=== PATIENT | female | born 1985 | race Two or more races ===

== ENCOUNTER 2024-02-04 13:12 | Outpatient (AMB) | payer MEDICAID, SELFPAY ==
--- NOTE | 2024-02-04 13:27 | PD.GSCLVISIT ---
[facility] - [facility] 02/04/24 13:28 Height 1.37 m Height Method Stated Weight 62.142 kg Weight Measurement Method Standing Scale BMI 33.0 BP 117/71 Blood Pressure Source Automatic Cuff Blood Pressure Location Right Upper Arm Position Sitting Respiration 18 Pulse 74 Pulse Source Monitor Temp 97.8 F Temp Source Temporal Artery Scan Pulse Oximetry (%) 98 Oxygen Delivery Method Room Air Med/Allergies Allergies & Medications Allergies No Known Allergies Allergy (Verified 02/04/24 13:29) Medication Reconciliation No Known Home Medications 02/04/24 [History Confirmed 02/04/24] MA Intake Visit Data Collection New Patient or Established: Established Patient (seen at [facility] within 3 years) Seen by Clinical Staff ONLY (RN/MA): No Reason for Visit:: COLONOSCOPY FOLLOW UP Pain Present Currently: No Utilization Review Coordinator Required: Yes PCP or OBGYN visit in last 3 months: Yes Hx Now: No Do You Feel Safe at Home: Yes Authorities Contacted: N/A Smoking Status Smoking Status: Never smoker Immunization / Flu Flu Vaccine in the Last 12 Months: No Flu Vaccine Exclusion Criteria: No Exclusion Criteria Past Medical History Past Medical History NEUROLOGIC: Positive Neurological Disorders (NUMBNESS TO LEFT LOWER ARM AT NIGHT); Negative Seizures CARDIAC: Positive Cardiac Disorders and Hypercholesterolemia (NO MEDS); Negative Congestive Heart Failure RESPIRATORY: Positive Asthma; Negative Chronic Obstructive Pulmonary Disease (COPD) GASTROINTESTINAL: Positive Gastrointestinal Disorders (FATTY LIVER) GENITOURINARY: Negative Genitourinary Disorders or Renal Disease REPRODUCTIVE: Positive Previous Pregnancies; Negative Breast Cancer, Endometriosis, Genital Herpes, Gonorrhea, Pelvic Inflammatory Disease, Syphilis or Uterine Prolapse ENDOCRINE: Positive Endocrine Disorders; Negative Diabetes Mellitus Type 1 or Diabetes Mellitus Type 2 (PRE - NO MEDS) HEMATOLOGIC: Negative Blood Disorders PSYCHO/SOCIAL: Positive Anxiety OTHER HISTORY: Positive Chicken Pox and Measles; Negative Blood Transfusions, Anesthesia Reactions, Organ Transplant, Chemotherapy, Radiation Therapy, Hyperbaric Therapy, Clostridium Difficile, Cancer or Breast Cancer Family History FAMILY HISTORY: Positive Family Cardiac Disorders; Negative Family Psychiatric Problems, Family Respiratory Disorders, Family Gastrointestinal Problems, Family Cancer, Family Surgery or Family Anesthesia Reaction Surgical History SURGICAL: Positive Abdominal Surgery and Section (X1); Negative Cardiac Surgery, Endocrine Surgery, Ear Surgery, Nephrectomy, Joint Replacement, Neurologic Surgery, Mastectomy or Organ Transplant Social History SMOKING STATUS: Smoking status: Never smoker ALCOHOL: Alcohol Intake: Never HOUSING: Housing: House LIVES WITH: Lives With: Family HPI HPI Narrative Spoke to pt with in-person educational interpreter 38F referred for hemorrhoids s/p colonoscopy 01/23 here to discuss results. Pt reports her hemorrhoids are still bothersome, mostly causing discomfort, even though her BMs are mostly soft without any straining or diarrhea ROS Review of Systems Systems Reviewed: All systems reviewed, normal except as documented Objective/Exam General General Appearance: alert, cooperative and well groomed Resp Respiratory exam: Absent respiratory distress Results Colonoscopy report reviewed Assessment & Plan Diagnosis / Problem List (1) Hemorrhoids with complication: Status: Acute Plan 39F with symptomatic hemorrhoids refractory to conservative management. Since she has healthy bowel habits I explained it is reasonable to proceed with THD; I explained benefits/risks including pain, bleeding and recurrence. Pt expressed understanding and agrees to proceed Office Procedures GNS Level of Care Nursing/Assessment Patient Status: Established Patient Nursing Assessment/Reassesment: Medication Reconciliation, Update PMH in EMR and Vital Signs Coordination of Care: Complex Care and Chronic Disease 1-5, Education Complex Pt/Fam, Consent,records obtained, informed consent, Results/Orders obtained and Staff clarify orders Special Needs: Language special needs Established Patient Charge Established Patient Point Assignment: 95 Established Patient Point Charge: EP Level 3 (80-115) Patient Portal Questionaires Social History Living Situation History Housing: House Tobacco History Smoking Status: Never smoker Alcohol History Alcohol Intake: Never Domestic Abuse History Do You Feel Safe at Home: Yes Review of Systems Report any current symptoms Only answer those that you have currently: Past Medical History Past Medical History Have you ever been diagnosed with any of the following: Neurological Problems Seizures: No Cardiology Problems Hypercholesterolemia: Yes (NO MEDS) Congestive Heart Failure: No Respiratory Problems Chronic Obstructive Pulmonary Disease (COPD): No Asthma: Yes Genital/Urinary Problems Renal Disease: No Reproductive Problems Breast Cancer: No Endometriosis: No Genital Herpes: No Gonorrhea: No Pelvic Inflammatory Disease: No Previous Pregnancies: Yes Syphilis: No Uterine Prolapse: No Endocrine Problems Diabetes Mellitus Type 1: No Diabetes Mellitus Type 2: No (PRE - NO MEDS) Psychologic Problems Anxiety: Yes Other Problems Blood Transfusions: No Anesthesia Reactions: No Organ Transplant: No Chemotherapy: No Radiation Therapy: No Hyperbaric Therapy: No Chicken Pox: Yes Measles: Yes Clostridium Difficile: No Cancer: No
[2024-02-04 13:28] VITALS: BP 117/71; PULSE 74; RESP 18; TEMP 36.6; O2SAT 98; BMI 33.0
== END 2024-02-04 13:51 | disposition home or self-care (01) ==
LOC: HODSRG 13:12
PROVIDERS: PCP Family Medicine; Referring Provider Family Medicine; Supervising Provider Surgery; Visit Provider Surgery
DX: K64.8 Other hemorrhoids (principal)
CPT/HCPCS: 99213; G0463

== ENCOUNTER 2024-03-19 05:55 | Day surgery (SDC) | payer MEDICAID, SELFPAY ==
[2024-03-14 07:14] VITALS: BMI 35.0
[2024-03-14 08:44] LABS: Basophils # (Auto) 0.1 Thou/mm3 (0.0-0.2); Basophils % (Auto) 1 % (0-2.5); Eosinophils # (Auto) 0.3 Thou/mm3 (0.0-0.5); Eosinophils % (Auto) 4 % (0-10); Hematocrit 34.5 % (36.0-46.0); Hemoglobin 11.7 g/dL (12.0-16.0); Immature Granulocytes % (Auto) 0 % (0-0); Immature Granulocytes Auto 0.02 Thou/mm3 (0.00-0.00); Lymphocytes % (Auto) 29 % (10-50); Mean Corpuscular HGB Conc 33.9 g/dl (31.0-37.0); Mean Corpuscular Hemoglobin 28.2 pg (25.0-35.0); Mean Corpuscular Volume 83 fL (80-100); Monocytes # (Auto) 0.3 Thou/mm3 (0.0-0.8); Monocytes % (Auto) 4 % (0-12); Neutrophils # (Auto) 4.3 Thou/mm3 (1.8-7.7); Neutrophils % (Auto) 61 % (37-80); Nucleated Red Blood Cell % 0 /100 WBC (0); Platelet Count 218 Thou/mm3 (140-440); RDW Standard Deviation 44.9 fL (36.4-46.3); Red Blood Count 4.15 Miln/mm3 (4.00-5.20)
[2024-03-14 08:55] LABS: HCG Qualitative,Urine Negative
[2024-03-14 09:08] LABS: Anion Gap 8 (7-16); BUN/Creatinine Ratio 23 Ratio (12-20); Blood Urea Nitrogen 14 mg/dL (9-23); Calcium 9.6 mg/dL (8.3-10.6); Carbon Dioxide 22.9 mMol/L (20.0-31.0); Chloride 106 mMol/L (98-107); Creatinine (Component) 0.6 mg/dL (0.6-1.3); Estimated Creatinine Clearance 96.5 mL/min (>60); Glucose 151 mg/dL (74-106); Osmolality,Calculated 277 (275-295); Potassium 3.5 mMol/L (3.4-5.1); Sodium 137 mMol/L (136-145); eGFR > 60 See Note
[2024-03-14 09:10] LABS: Partial Thromboplastin Time 28.4 Seconds (22.0-36.0); Prothrombin Time 10.7 Seconds (9.0-12.2)
[2024-03-19] VITALS (10 sets, daily range): BP systolic 112–148; BP diastolic 64–93; PULSE 68–85; RESP 13–19; TEMP 36.1–36.6; O2SAT 96–98; BMI 34.4
[2024-03-19] MEDS: RINGERS LACTATED 1000 ML 1,000 ML 20 ML IV (06:45)
--- NOTE | 2024-03-19 08:25 | SUR.PHASEI ---
0882 Patient arrived to recovery resting comfortably in [facility], drowsy and able to arouse with verbal prompting, breathing unlabored, vital signs stable, denies pain, dressing intact to buttock; fluffs, abd, medipore tape, mesh underwear, no bleeding noted, lung sounds clear upon auscultation, bilateral radial pulses present when palpated, report received from Dr. Gagnon and Rizwan SOSA
--- NOTE | 2024-03-19 08:26 | PD.SUROPNT ---
Date of Procedure 03/19/24 Pre Op Diagnosis Symptomatic hemorrhoids Post Op Diagnosis Same Procedure Transanal hemorrhoidal dearterialization Findings Internal hemorrhoids Procedure Description After discussion of risk and benefits, patient was brought to the operating room, SCDs were placed and general anesthesia was induced. She was placed in lithotomy position with proper padding and was prepped and draped in the usual sterile fashion. After timeout a ESTRELLA was performed which was normal. The anal canal was inspected with a lubricated King retractor and anterior normal hemorrhoids were noted. Transanal hemorrhoidal dearterialization was undertaken at the 1, 3, 5, 7, 9, and 11:00 positions. As there was no prolapsing tissue no mucopexy was required. Left and right pudendal nerve blocks were performed as well as a local block for total of 30 cc of half percent Marcaine. Patient was returned to supine position and extubated without complication. She was brought to PACU in stable condition Pathology / specimen None Estimated Blood Loss 20 Surgeon Anna Ocampo MD Surgical Staff Operation Date: 03/19/24 07:30 Case Staff Anesthesiologist: Jaquan Gagnon
--- NOTE | 2024-03-19 08:28 | PD.SURDS ---
Planned Discharge Date 03/19/24 DS: Providers Provider Primary care physician: Jesus Mazariegos MD Attending Provider on Admission: Anna Ocampo MD Attending Provider on DC: Anna Ocampo MD Discharging Provider: Anna Ocampo MD Diagnosis Discharge Diagnosis (1) Hemorrhoids with complication: Status: Acute Problem List Completed Was Problem List Reviewed/Reconciled?: Yes Exam Vital Signs Temp Pulse Resp BP Pulse Ox 97 F 72 14 128/64 98 03/19/24 06:35 03/19/24 06:35 03/19/24 06:35 03/19/24 06:35 03/19/24 06:35 Discharge Plan Plan Patient Disposition: HOME (Self Care) Prescriptions/Referrals Prescriptions/Med Rec: New docusate sodium [Colace] 100 mg capsule 100 mg PO QDAY PRN (Reason: constipation) Qty: 30 0RF ibuprofen 800 mg tablet 800 mg PO Q8H PRN (Reason: pain) Qty: 30 0RF oxycodone-acetaminophen [Percocet] 5-325 mg tablet 1 tab PO Q6H MDD 6 tabs PRN (Reason: pain) Qty: 30 0RF No Action albuterol sulfate 90 mcg/actuation HFA aerosol inhaler 1 puff INHALATION Q4HR PRN (Reason: Shortness Of Breath Or Wheezing) norethindrone (contraceptive) 0.35 mg Tablet 0.35 mg PO QDAY amoxicillin 500 mg Capsule 500 mg PO Q8H Referrals: Jesus Mazariegos MD [Primary Care Provider] - Anna Ocampo MD [Physician] - (You will receive a phone call to confirm a follow-up appointment with me in 6 weeks) Patient/Caregiver Discharge Instructions Other Discharge Activity Instructions:: Avoid constipation and diarrhea You may take Percocet and ibuprofen each as needed for pain, would stagger the doses so that you can take 1 or the other every 3-4 hours You may take sitz baths for pain, swelling and bleeding as needed starting tomorrow 03/20 If you develop worsening pain, fever, difficulty urinating please seek care in ER Education Materials: Treating Hemorrhoids: Surgery, Taking a Sitz Bath Print Language: Austrian Stand Alone Forms: Jeane Award Info., Patient Portal Info Letter Discharge Order Discharge Orders: Discharge (Routine); Ordered 03/19/24 Ordered By: Anna Ocampo Results Results: Laboratory Laboratory results: results reviewed Procedures Procedure Date 03/19/24 Procedures Transanal hemorrhoidal dearterialization
[2024-03-19] MEDS: fentaNYL CIT INJ 50 mCg/ML AMP 2ML 25 MCG IV ×2 (08:55→09:12)
[2024-03-19] MEDS: ONDANSETRON INJ 2 MG/ML INJ 2 ML 4 MG IV (09:06)
--- NOTE | 2024-03-19 10:04 | SUR.PHASEII ---
1004 Patient meets discharge criteria from recovery, awake and alert, breathing unlabored, vital signs stable, denies pain, dressing intact; no bleeding noted, patient eating ice chips tolerating well, patient assisted with dressing into her clothing by this principal technical writer, discharge instructions given with the assistance of the telephone telecommunications officer Kevyn ID#[id number] to patient and patients , signed discharge instructions. Patient given all her belongings prior to discharge, transported via wheelchair and left in a private vehicle.
== END 2024-03-19 10:04 | disposition home or self-care (01) ==
PROVIDERS: Anesthesiology; PCP Family Medicine; Referring Provider Surgery; Visit Provider Surgery
PROC: (CPT 46948; principal; 2024-03-19 07:30)
DX: K64.8 Other hemorrhoids (principal)
CPT/HCPCS: 46948; 36415; 80048; 81025; 85025; 85610; 85730; A4217; A4649; J1100; J2250; J2371; J2405; J2704; J3010; J3490; J7120

== ENCOUNTER 2024-05-05 08:48 | Outpatient (AMB) | payer MEDICAID, SELFPAY ==
--- NOTE | 2024-05-05 08:59 | PD.GSCLVISIT ---
[facility] - [facility] 05/05/24 09:00 Height 1.35 m Height Method Stated Weight 60.555 kg Weight Measurement Method Standing Scale BMI 33.2 BP 127/86 H Blood Pressure Source Automatic Cuff Blood Pressure Location Left Upper Arm Position Sitting Respiration 18 Pulse 69 Pulse Source Monitor Temp 95.8 F L Temp Source Temporal Artery Scan Pulse Oximetry (%) 97 Oxygen Delivery Method Room Air Med/Allergies Allergies & Medications Allergies No Known Allergies Allergy (Verified 05/05/24 09:12) Medication Reconciliation albuterol sulfate 90 mcg/actuation aerosol inhaler 1 puff inhalation Q4HR PRN Shortness Of Breath Or Wheezing 02/18/24 [History Confirmed 05/05/24] norethindrone (contraceptive) 0.35 mg tablet 0.35 mg PO QDAY 02/18/24 [History Confirmed 05/05/24] amoxicillin 500 mg capsule 500 mg PO Q8H 03/14/24 [History Confirmed 05/05/24] docusate sodium 100 mg capsule (Colace) 100 mg PO QDAY PRN constipation #30 caps 03/19/24 [Rx Confirmed 05/05/24] ibuprofen 800 mg tablet 800 mg PO Q8H PRN pain #30 tabs 03/19/24 [Rx Confirmed 05/05/24] ondansetron 4 mg disintegrating tablet 4 mg PO Q6H PRN nausea and vomiting #20 tabs 03/19/24 [Rx Confirmed 05/05/24] oxycodone-acetaminophen 5 mg-325 mg tablet (Percocet) 1 tab PO Q6H PRN pain #30 tabs 03/19/24 [Rx Confirmed 05/05/24] MA Intake Visit Data Collection New Patient or Established: Established Patient (seen at [facility] within 3 years) Seen by Clinical Staff ONLY (RN/MA): No Reason for Visit:: F/U TRANSANAL HEMORRHOID Pain Present Currently: No Director Of Vocational Guidance Required: Yes PCP or OBGYN visit in last 3 months: Yes Hx Now: No Do You Feel Safe at Home: Yes Authorities Contacted: N/A Smoking Status Smoking Status: Never smoker Immunization / Flu Flu Vaccine in the Last 12 Months: No Flu Vaccine Exclusion Criteria: No Exclusion Criteria Past Medical History Past Medical History NEUROLOGIC: Negative Neurological Disorders or Seizures CARDIAC: Negative Cardiac Disorders, Hypercholesterolemia or Congestive Heart Failure RESPIRATORY: Positive Asthma and Pneumonia; Negative Chronic Obstructive Pulmonary Disease (COPD) GASTROINTESTINAL: Positive Gastrointestinal Disorders, Hemorrhoids and Obesity; Negative Hepatitis GENITOURINARY: Negative Genitourinary Disorders or Renal Disease REPRODUCTIVE: Positive Previous Pregnancies; Negative Breast Cancer, Endometriosis, Genital Herpes, Gonorrhea, Pelvic Inflammatory Disease, Syphilis or Uterine Prolapse ENDOCRINE: Negative Endocrine Disorders, Diabetes Mellitus Type 1 or Diabetes Mellitus Type 2 HEMATOLOGIC: Negative Blood Disorders PSYCHO/SOCIAL: Negative Anxiety OTHER HISTORY: Positive Hospitalization (surgery, pneumonia), Chicken Pox and Measles; Negative Shingles, Blood Transfusions, Anesthesia Reactions, Organ Transplant, Chemotherapy, Radiation Therapy, Hyperbaric Therapy, Clostridium Difficile, Cancer or Breast Cancer Family History FAMILY HISTORY: Positive Family Cardiac Disorders, Family Gastrointestinal Problems and Family Surgery; Negative Family Psychiatric Problems, Family Respiratory Disorders, Family Cancer or Family Anesthesia Reaction Surgical History SURGICAL: Positive Abdominal Surgery and Section (x1); Negative Cardiac Surgery, Endocrine Surgery, Ear Surgery, Nephrectomy, Joint Replacement, Neurologic Surgery, Mastectomy or Organ Transplant Social History SMOKING STATUS: Smoking status: Never smoker ALCOHOL: Alcohol Intake: Never HOUSING: Housing: Apartment LIVES WITH: Lives With: Family HPI HPI Narrative 39F with symptomatic internal hemorrhoids s/p THD 03/19 here for planned follow up. Pt reports she is having mild soreness especially when sitting for prolonged periods, but is no longer taking any pain medications. She tried percocet at first but stopped because it caused her abdominal pain. She denies any recent bleeding or itching, and is not currently using any remedies for hemorrhoids. Overall she does feel symptoms have improved since surgery ROS Review of Systems Systems Reviewed: All systems reviewed, normal except as documented Objective/Exam General General Appearance: alert, cooperative and well groomed Resp Respiratory exam: Absent respiratory distress Assessment & Plan Diagnosis / Problem List (1) Hemorrhoids with complication: Status: Acute Assessment & Plan: 39F s/p THD for symptomatic hemorrhoids 03/19/24, recovering well Plan: OK to return to work F/u as needed Office Procedures GNS Level of Care Nursing/Assessment Patient Status: Established Patient Nursing Assessment/Reassesment: Medication Reconciliation, Update PMH in EMR and Vital Signs Coordination of Care: Complex Care and Chronic Disease 1-5, Consent,records obtained, informed consent, Education Simp Pt/Fam, Results/Orders obtained and Staff clarify orders Special Needs: Language special needs Established Patient Charge Established Patient Point Assignment: 90 Established Patient Point Charge: Level 3 (80-115) Patient Portal Questionaires Social History Living Situation History Housing: Apartment Tobacco History Smoking Status: Never smoker Alcohol History Alcohol Intake: Never Domestic Abuse History Do You Feel Safe at Home: Yes Review of Systems Report any current symptoms Only answer those that you have currently: Past Medical History Past Medical History Have you ever been diagnosed with any of the following: Neurological Problems Seizures: No Cardiology Problems Hypercholesterolemia: No Congestive Heart Failure: No Respiratory Problems Chronic Obstructive Pulmonary Disease (COPD): No Asthma: Yes Pneumonia: Yes Stomache/Intestinal Problems Hepatitis: No Hemorrhoids: Yes Obesity: Yes Genital/Urinary Problems Renal Disease: No Reproductive Problems Breast Cancer: No Endometriosis: No Genital Herpes: No Gonorrhea: No Pelvic Inflammatory Disease: No Previous Pregnancies: Yes Syphilis: No Uterine Prolapse: No Endocrine Problems Diabetes Mellitus Type 1: No Diabetes Mellitus Type 2: No Psychologic Problems Anxiety: No Other Problems Hospitalization: Yes (surgery, pneumonia) Shingles: No Blood Transfusions: No Anesthesia Reactions: No Organ Transplant: No Chemotherapy: No Radiation Therapy: No Hyperbaric Therapy: No Chicken Pox: Yes Measles: Yes Clostridium Difficile: No Cancer: No
[2024-05-05 09:00] VITALS: BP 127/86; PULSE 69; RESP 18; TEMP 35.4; O2SAT 97; BMI 33.2
== END 2024-05-05 09:11 | disposition home or self-care (01) ==
LOC: HODSRG 08:48
PROVIDERS: PCP Family Medicine; Referring Provider Family Medicine; Supervising Provider Surgery; Visit Provider Surgery
DX: Z48.815 Encounter for surgical aftercare following surgery on the digestive system (principal)
CPT/HCPCS: 99213; G0463

== ENCOUNTER → 2024-06-24 | Outpatient (CLI) | payer MEDICAID, SELFPAY ==
--- NOTE | 2024-06-24 10:30 | XR_ITS ---
Examination: Transvaginal ultrasound of the pelvis, complete Technique: Transvaginal sonographic images pelvis performed using gasca scale imaging Exam date and time: June 24, 2024 1043 hours INDICATIONS: Pelvic pain beginning one year ago, complex cyst in the cervix 19 mm on ultrasound May 31, 2023 FINDINGS: Uterus 9.2 cm endometrial stripe 1.1 cm Multiple uterine areas of fibroid degeneration, including in the uterine body 18 x 16 mm Multiple benign cervical cyst, the largest with internal echoes 19 x 16 mm Right ovary 3.8 cm arterial flow 31 mm cyst Left ovary 2.8 cm arterial flow IMPRESSION: Multiple uterine areas of fibroid degeneration Multiple benign cervical cysts Right ovarian simple cyst 31 x 27 mm.
--- NOTE | 2024-06-24 10:30 | XR_ITS ---
Examination: Pelvic ultrasound, transabdominal, complete Technique: Transabdominal ultrasound of the pelvis performed using grayscale imaging Date and time of exam: June 24, 2024 1024 hours INDICATIONS: Pelvic pain beginning one year ago, complex cyst in the cervix 19 x 10 x 19 mm on ultrasound May 31, 2023 FINDINGS: Uterus 9.8 cm endometrial stripe 1.0 cm Multiple uterine areas of fibroid degeneration, the largest in the fundus 2.0 x 1.6 cm Multiple cervical cysts including complex cervical cyst with internal echoes 18 x 21 mm Right ovary 4.8 cm arterial flow 3.3 x 2.6 cm cyst Left ovary 3.2 cm arterial flow IMPRESSION: Multiple uterine areas of fibroid degeneration Multiple cervical benign-appearing cysts Simple right ovarian cyst 3.3 x 2.2 x 2.6 cm
== END | disposition home or self-care (01) ==
PROVIDERS: Referring Provider Physician Assistant; Visit Provider Physician Assistant
DX: D25.9 Leiomyoma of uterus, unspecified (principal); N88.8 Other specified noninflammatory disorders of cervix uteri; N83.291 Other ovarian cyst, right side; Z86.018 Personal history of other benign neoplasm
CPT/HCPCS: 76830; 76856

== ENCOUNTER 2024-10-10 18:20 | Emergency (ER) | payer MEDICAID, SELFPAY ==
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
[2024-10-10 18:43] VITALS: BP 130/86; PULSE 72; RESP 16; TEMP 37; O2SAT 98; BMI 32.3
--- NOTE | 2024-10-10 20:04 | EDNOTE_ITS ---
<Statement entered by Salena Payne MD - 10/13/24 18:57> As co-signing physician, I was present and available for consult prn. I concur with the plan and care as documented by the midlevel provider. ED Skin Abcess FB-RME/HPI General Chief complaint: Skin/Abscess/Foreign Body Stated complaint: Rash X 4 weeks, on medication Time Seen by Provider: 10/10/24 19:08 Arrival date/time: 10/10/24 18:20 39F with no significant PMH presents to ED with 4 weeks of itchy/painful rash in skin folds. Patient went to PCP who prescribed multiple antifungals and a medium/high strength steroid. Patient has been using them w/o relief. Limitations: no limitations Related Data Home Medications ?Medication ?Instructions ?Recorded ?Confirmed albuterol sulfate 90 mcg/actuation 1 puff inhalation Q 4HR PRN 02/18/24 05/05/24 aerosol inhaler Shortness Of Breath Or Wheez ing norethindrone (contraceptive) 0.35 0.35 mg PO QDAY 05/05/24 mg tablet amoxicillin 500 mg capsule 500 mg PO Q8H 03/14/2406/24 Previous Rx's ?Medication ?Instructions ?Recorded docusate sodium 100 mg capsule 100 mg PO QDAY PRN cons tipation 03/19/24 (Colace) #30 caps ibuprofen 800 mg tablet 800 mg PO Q8H PRN pain #30 t abs 03/19/24 ondansetron 4 mg disintegrating 4 mg PO Q6H PRN nausea and 03/19/24 tablet vomiting #20 tabs oxycodone-acetaminophen 5 mg-325 1 tab PO Q6H PRN pain #30 tabs 03/19/24 mg tablet (Percocet) Allergies Allergy/AdvReac Type Severity Reaction Status Date / Time No Known Allergies Allergy Verified 10/10/24 18:30 Review of Systems Review of Systems Systems Reviewed: All systems reviewed, normal except as documented Constitutional Constitutional: Reports system reviewed and no additional complaints, except as documented, Denies fever(s) and Denies headache(s) ENT Ears, Nose, Mouth, and Throat: Denies disequilibrium and Denies headache(s) Cardiovascular Cardiovascular: Reports system reviewed and no additional complaints, except as documented, Denies chest pain and Denies dyspnea Respiratory Respiratory: Reports system reviewed and no additional complaints, except as documented, Denies cough and Denies dyspnea Gastrointestinal Gastrointestinal: Reports system reviewed and no additional complaints, except as documented, Denies abdominal pain, Denies nausea and Denies vomiting Integumentary/Breasts Skin/Breast: Reports as per HPI, Reports pruritus, Reports rash and Reports skin pain Neurologic Neurologic: Reports system reviewed and no additional complaints, except as documented, Denies confusion, Denies disequilibrium and Denies headache(s) Psychiatric Psychiatric: Denies confusion Past Medical History Past Medical History NEUROLOGIC: Negative Neurological Disorders or Seizures CARDIAC: Negative Cardiac Disorders, Hypercholesterolemia or Congestive Heart Failure RESPIRATORY: Positive Asthma and Pneumonia; Negative Chronic Obstructive Pulmonary Disease (COPD) GASTROINTESTINAL: Positive Gastrointestinal Disorders, Hemorrhoids and Obesity; Negative Hepatitis GENITOURINARY: Negative Genitourinary Disorders or Renal Disease REPRODUCTIVE: Positive Previous Pregnancies; Negative Breast Cancer, Endometriosis, Genital Herpes, Gonorrhea, Pelvic Inflammatory Disease, Syphilis or Uterine Prolapse MUSCULOSKELETAL: Negative Musculoskeletal Disorders ENDOCRINE: Negative Endocrine Disorders, Diabetes Mellitus Type 1 or Diabetes Mellitus Type 2 HEMATOLOGIC: Negative Blood Disorders PSYCHO/SOCIAL: Negative Anxiety OTHER HISTORY: Positive Hospitalization (surgery, pneumonia), Chicken Pox and Measles; Negative Autoimmune Disease, Shingles, Blood Transfusions, Anesthesia Reactions, Organ Transplant, Chemotherapy, Radiation Therapy, Hyperbaric Therapy, Clostridium Difficile, Cancer or Breast Cancer Family History FAMILY HISTORY: Positive Family Cardiac Disorders, Family Gastrointestinal Problems and Family Surgery; Negative Family Psychiatric Problems, Family Respiratory Disorders, Family Cancer or Family Anesthesia Reaction Surgical History SURGICAL: Positive Abdominal Surgery and Section (x1); Negative Cardiac Surgery, Endocrine Surgery, Ear Surgery, Nephrectomy, Joint Re placement, Neurologic Surgery, Mastectomy or Organ Transplant Social History SMOKING STATUS: Never smoker SUBSTANCE USE: does not use ED Exam General Limitations: Present no limitations General appearance: Present alert and in no apparent distress Head Head exam: Present atraumatic Eye Eye exam: Present normal appearance, PERRL and EOMI ENT ENT exam: Present normal exam, normal oropharynx and mucous membranes moist Neck Neck exam: Present normal inspection, full ROM and trachea midline Chest Chest inspection: Present normal inspection and symmetric chest wall rise Respiratory Respiratory exam: Present normal lung sounds bilaterally Cardiovascular Cardiovascular exam: Present regular rate, normal rhythm and normal heart sounds Abdominal Exam Abdominal exam: Present soft and normal bowel sounds Extremities Exam Extremities exam: Present normal inspection and full ROM Back Exam Back exam: Present normal inspection and full ROM Neurological Exam Neurological exam: Present alert, oriented X3 and CN II-XII intact Psychiatric Psychiatric exam: Present normal affect and normal mood Skin Skin exam: Present warm, dry, intact, normal color and rash Course Quality Measures none Vital Signs Vital signs: Vital Signs Temperature 98.6 F 10/10/24 18:43 Pulse Rate 72 10/10/24 18:43 Respiratory Rate 16 10/10/24 18:43 Blood Pressure 130/86 H 10/10/24 18:43 Pulse Oximetry (%) 98 10/10/24 18:43 Oxygen Delivery Method Room Air 10/10/24 18:43 O2 at 98% on RA and WNLs Skin / Abscess / Foreign Body MDM Narrative MDM Narrative:: 39F with no significant PMH presents to ED with 4 weeks of itchy/painful rash in skin folds. Patient went to PCP who prescribed multiple antifungals and a medium/high strength steroid. Patient has been using them w/o relief. Physical exam with solutions consultant reveals non-scaly and non-tender rash in skin folds. Patient is afebrile, calm, and alert. Unclear etiology, but likely inflammatory rather than infectious. May also be steroid dermatitis given medium/high strength steroids should not be used in the skin folds. Counseled to see derm and stop steroid use. Patient data External records reviewed:: [facility] previous records Clinical information provided by:: patient Social determinants that could affect healthcare access:: none Patient has the following chronic illnesses:: none How is presenting disease/condition affected by chronic disease/condition?: no chronic disease Evaluation data The following diagnostics were reviewed and interpreted by me:: other (specify) (none) Lab and/or radiology exams considered but not ordered:: not ordered Interpretation Summary: n/a Medications / Prescriptions Medications or Prescriptions considered but not ordered:: not ordered Medication administrations:: n/a Consultations Consultation(s) initiated? (list below): No Diagnosis Skin/Abscess Differential Diagnosis: abscess of skin or subcutaneous tissue, viral exanthem, dermatophytosis, urticaria, herpes zoster, allergic reaction to drug, cellulitis, eczema, insect bites, impetigo and contact dermatitis Most likely diagnosis given after review of the tests above:: dermatitis Admission Indicated Admission indicated?: not indicated Admission Request Was there a request for admission?: No Disposition Plan Disposition Plan: Discharge Discharge Attestation Discharge Attestation: The patient and all family members were given an opportunity to ask questions and understood the discharge instructions. Discharge instructions specifically effects, indications for sooner follow up or return to the emergency department, and the expected course of current diagnosis. Patient condition: Stable Discharge Plan Plan Patient Disposition: HOME (Self Care) Discharge Disposition comment: Stable Prescriptions/Referrals Prescriptions/Med Rec: No Action albuterol sulfate 90 mcg/actuation HFA aerosol inhaler 1 puff INHALATION Q4HR PRN (Reason: Shortness Of Breath Or Wheezing) norethindrone (contraceptive) 0.35 mg Tablet 0.35 mg PO QDAY amoxicillin 500 mg Capsule 500 mg PO Q8H docusate sodium [Colace] 100 mg capsule 100 mg PO QDAY PRN (Reason: constipation) Qty: 30 0RF ibuprofen 800 mg tablet 800 mg PO Q8H PRN (Reason: pain) Qty: 30 0RF oxycodone-acetaminophen [Percocet] 5-325 mg tablet 1 tab PO Q6H MDD 6 tabs PRN (Reason: pain) Qty: 30 0RF ondansetron 4 mg tablet,disintegrating 4 mg PO Q6H PRN (Reason: nausea and vomiting) Qty: 20 0RF Problem List Clinical Impression: Rash Patient/Caregiver Discharge Instructions Education Materials: ED Dermatitis Non Specific Rash Additional Instructions: Please follow-up with PCP within 24-48 hours and return immediately if symptoms worsen. If problem persists, see dermatology. Print Language: Uzbek Stand Alone Forms: Patient Portal Info Letter AVE/MAGY Supervising Physician AVE/MAGY Supervising Physician: Dr. Payne
== END 2024-10-10 19:26 | disposition home or self-care (01) ==
LOC: SERX 19:23
PROVIDERS: Emergency Provider Emergency Medicine; PCP Nurse Practitioner Family
DX: R21 Rash and other nonspecific skin eruption (principal)
CPT/HCPCS: 99283

== ENCOUNTER → 2024-11-24 | Outpatient (CLI) | payer MEDICAID, SELFPAY ==
--- NOTE | 2024-11-24 13:30 | XR_ITS ---
Examination: Transvaginal ultrasound of the pelvis, complete Technique: Transvaginal sonographic images pelvis performed using gasca scale imaging Exam date and time: November 24, 2024, 1422 hours INDICATIONS: History left ovarian cystic disease FINDINGS: Uterus 9.5 cm endometrial stripe 0.7 cm Fundal fibroid degeneration mass 20 x 10 x 11 mm Right ovary 2.7 cm arterial flow Left ovary 3.0 cm arterial flow IMPRESSION: Small uterine fundal area of fibroid degeneration. No current cystic ovarian masses.
--- NOTE | 2024-11-24 13:30 | XR_ITS ---
Examination: Pelvic ultrasound, transabdominal, complete Technique: Transabdominal ultrasound of the pelvis performed using grayscale imaging Date and time of exam: November 24, 2024, 1413 hours INDICATIONS: Right ovarian cyst 31 mm on ultrasound June 24, 2024 FINDINGS: Uterus 9.7 cm endometrial stripe 0.7 cm Benign cervical stenosis Uterine fibroid degeneration 17 x 14 mm in the left fundus Right ovary 2.5 cm arterial flow Left ovary 3.2 cm arterial flow IMPRESSION: Fundal area of fibroid degeneration 17 x 14 mm No current ovarian cyst
== END | disposition home or self-care (01) ==
PROVIDERS: PCP Nurse Practitioner Family; Referring Provider Obstetrics & Gynecology; Visit Provider Obstetrics & Gynecology
DX: D25.9 Leiomyoma of uterus, unspecified (principal)
CPT/HCPCS: 76830; 76856

== ENCOUNTER 2025-01-26 18:09 | Emergency (ER) | payer MEDICAID, SELFPAY ==
[2025-01-26 18:12] VITALS: BMI 32.3
--- NOTE | 2025-01-26 18:17 | EKG_ITS ---
[facility] Test Date: 2025-01-26 Pat Name: ANA ROSA PHELPS Department: Room: - Gender: Female [employer]: : 1985 Requested By: William Woodward Order Number: [id number] Reading MD: William Woodward Measurements Intervals [place] Rate: 63 P: 58 ND: 145 QRS: -44 QRSD: 101 T: 50 QT: 372 QTc: 383 Interpretive Statements SINUS RHYTHM INDETERMINATE AXIS NONSPECIFIC T-WAVE ABNORMALITY Compared to ECG 02/18/2024 12:40:42 T-wave abnormality now present /store/S0/[id number].pdf
[2025-01-26 18:56] VITALS: BP 165/95; PULSE 66; RESP 16; TEMP 37; O2SAT 100
--- NOTE | 2025-01-26 19:21 | XR_ITS ---
Examination: CT brain head without contrast. 2-D sagittal coronal reconstructions Date and time of exam: January 26, 2025, 2018 hours INDICATION: Onset headaches beginning 3 days ago CTDI: vol (mGy): 46.5 DLP: (mGycm): 875 Technique: Multiple CT axial sections of the brain have been obtained, 5 mm slice thickness. Contrast has not been administered. 2-D sagittal, coronal reconstructions have been obtained Low dose protocols were performed. One or more of the following dose reduction techniques were used; automated exposure control, adjustment of the mA and/or KV according to patient size, use of iterative reconstruction technique. Findings: No significant ventricular enlargement. Intra-axial or extra-axial hemorrhage density is not seen. No mass effect or midline shift Basal cisterns are not remarkable. Fourth ventricle is midline. Cranial vault intact. Impression: Negative for acute hemorrhage, mass effect or midline shift Acute right maxillary sinusitis
--- NOTE | 2025-01-26 19:22 | PD.EDRME ---
Rapid Medical Screening Exam E Arrival date/time: 01/26/25 18:09 40-year-old female who denies cardiac history reports with complaints of persistent headache x 3 days left-sided chest pain and left arm pain that began this morning Chief Complaint: Headache Time Seen by Provider: 01/26/25 18:22 Vital signs: Vital Signs Temperature 98.6 F 01/26/25 18:56 Pulse Rate 66 01/26/25 18:56 Respiratory Rate 16 01/26/25 18:56 Blood Pressure 165/95 H 01/26/25 18:56 Pulse Oximetry (%) 100 01/26/25 18:56 Oxygen Delivery Method Room Air 01/26/25 18:56 Exam: unknown Clinical Impression: unknown
[2025-01-26 19:48] LABS: Basophils # (Auto) 0.0 Thou/mm3 (0.0-0.2); Basophils % (Auto) 1 % (0-2.5); Eosinophils # (Auto) 0.2 Thou/mm3 (0.0-0.5); Eosinophils % (Auto) 3 % (0-10); Hematocrit 37.5 % (36.0-46.0); Hemoglobin 12.7 g/dL (12.0-16.0); Immature Granulocytes Auto 0.02 Thou/mm3 (0.00-0.00); Lymphocytes # (Auto) 3.0 Thou/mm3 (1.0-4.8); Lymphocytes % (Auto) 41 % (10-50); Mean Corpuscular HGB Conc 33.9 g/dl (31.0-37.0); Mean Corpuscular Hemoglobin 28.9 pg (25.0-35.0); Mean Corpuscular Volume 85 fL (80-100); Monocytes # (Auto) 0.5 Thou/mm3 (0.0-0.8); Monocytes % (Auto) 6 % (0-12); Neutrophils # (Auto) 3.6 Thou/mm3 (1.8-7.7); Neutrophils % (Auto) 49 % (37-80); Nucleated Red Blood Cell # 0.00 Thou/mm3 (0.00-0.00); Nucleated Red Blood Cell % 0 /100 WBC (0); Platelet Count 213 Thou/mm3 (140-440); RDW Standard Deviation 42.9 fL (36.4-46.3); Red Blood Count 4.39 Miln/mm3 (4.00-5.20); White Blood Count 7.3 Thou/mm3 (3.6-11.0)
[2025-01-26 20:01] LABS: Collection Type, Urine Clean Catch
[2025-01-26 20:06] LABS: Bilirubin,Urine Negative (Negative); Blood,Urine 3+ (Negative); Clarity,Urine Clear (Clear/Hazy); Color,Urine Colorless (Lt Yel-Yel); Culture Indicated,Urine Not Indicated; Glucose, Urine Negative (Negative); Ketones,Urine Negative (Negative); Leukocyte Esterase,Urine Negative (Negative); Nitrite,Urine Negative (Negative); PH,Urine 6.0 (5.0-7.0); Protein,Urine Negative (Neg - Trace); RBC,Urine 568 /hpf (0-3); Specific Gravity,Urine 1.007 (1.001-1.035); Squamous Epithelial Cell,Urine 1 /hpf (0-5); Urobilinogen,Urine Negative mg/dL (0.0-1.0); WBC,Urine 5 /hpf (0-5)
[2025-01-26 20:11] LABS: HCG,Qualitative Serum Negative
[2025-01-26 20:13] LABS: Alanine Aminotransferase 12 U/L (10-49); Albumin, Serum 4.8 gm/dL (3.5-5.0); Albumin/Globulin Ratio 2.0 (1.2-2.2); Alkaline Phosphatase 53 U/L (46-116); Anion Gap 9 (7-16); Aspartate Amino Transferase 19 U/L (0-34); BUN/Creatinine Ratio 18 Ratio (12-20); Bilirubin,Total 0.4 mg/dL (0.3-1.2); Blood Urea Nitrogen 9 mg/dL (9-23); Calcium 9.8 mg/dL (8.3-10.6); Calcium (Corrected) 9.8 mg/dL (8.5-10.1); Carbon Dioxide 25.1 mMol/L (20.0-31.0); Chloride 105 mMol/L (98-107); Creatinine (Component) 0.5 mg/dL (0.6-1.3); Estimated Creatinine Clearance 109.9 mL/min (>60); Globulin 2.4 gm/dL (2.3-3.5); Glucose 95 mg/dL (74-106); Osmolality,Calculated 276 (275-295); Potassium 3.6 mMol/L (3.4-5.1); Sodium 139 mMol/L (136-145); Total Protein 7.2 gm/dL (5.7-8.2); Troponin I < 0.002 ng/mL (0.0-0.045); eGFR > 60 See Note
[2025-01-26 23:19] VITALS: BP 130/92; PULSE 65; RESP 19; TEMP 37.2; O2SAT 99
--- NOTE | 2025-01-27 00:01 | PD.EDHA ---
ED Headache RME/HPI General Chief Complaint: Headache Stated Complaint: ALMODOVAR x3 D, CXP/DIZZY ON/OFF x 3D, L ARM NUMB AT 1600 Time Seen by Provider: 01/26/25 18:22 Arrival date/time: 01/26/25 18:09 RME / HPI RME / HPI Narrative: 01/26/25 18:09 40-year-old female who denies cardiac history reports with complaints of persistent headache x 3 days left-sided chest pain and left arm pain that began this morning DR. DUMONT MAIN ED EVALUATION: Patient with recent right upper RCT presenting with right facial pain of several days duration and notes frontal occipital ALMODOVAR of 3 days duration, no change with exertion. ALMODOVAR described as pressure-like no pulsatile component. No photosensitivity, nausea, or vomiting. Patient currently being treated with Amoxicillin by Dental PMD x 5 days. PMH: Asthma, Obesity, Hypercholesterolemia, Type II DM PSH: Cholecystectomy, Allergies: None Social:Non-smoker, Non-drinker, No illicit drug abuse Exam: unknown Impression: unknown Related Data Home Medications ?Medication ?Instructions ?Recorded ?Confirmed albuterol sulfate 90 mcg/actuation 1 puff inhalation Q4HR PRN 02/18/24 05/05/24 aerosol inhaler Shortness Of Breath Or Wheezing norethindrone (contraceptive) 0.35 0.35 mg PO QDAY 02/18/24 05/05/24 mg tablet amoxicillin 500 mg capsule 500 mg PO Q8H 03/14/24 05/05/24 Previous Rx's ?Medication ?Instructions ?Recorded docusate sodium 100 mg capsule 100 mg PO QDAY PRN constipation 03/19/24 (Colace) #30 caps ibuprofen 800 mg tablet 800 mg PO Q8H PRN pain #30 tabs 03/19/24 ondansetron 4 mg disintegrating 4 mg PO Q6H PRN nausea and 03/19/24 tablet vomiting #20 tabs oxycodone-acetaminophen 5 mg-325 1 tab PO Q6H PRN pain #30 tabs 03/19/24 mg tablet (Percocet) acetaminophen 300 mg-codeine 15 mg 1 tab PO Q8H PRN pain #14 tabs 01/27/25 tablet amoxicillin 500 mg-potassium 1 tab PO TID 7 days #21 tabs 01/27/25 clavulanate 125 mg tablet (Augmentin) oxymetazoline 0.05 % nasal spray 2 spray intranasal Q12H PRN nasal 01/27/25 (Afrin (oxymetazoline)) congestion 3 days #30 mL prednisone 20 mg tablet 20 mg PO QDAY 5 days #5 tabs 01/27/25 Allergies Allergy/AdvReac Type Severity Reaction Status Date / Time No Known Allergies Allergy Verified 01/26/25 18:15 Review of Systems Review of Systems Systems Reviewed: All systems reviewed, normal except as documented Past Medical History Past Medical History CARDIAC: Positive Hypercholesterolemia RESPIRATORY: Positive Asthma and Pneumonia GASTROINTESTINAL: Positive Gastrointestinal Disorders, Hemorrhoids and Obesity REPRODUCTIVE: Positive Previous Pregnancies ENDOCRINE: Positive Diabetes Mellitus Type 2 OTHER HISTORY: Positive Hospitalization (surgery, pneumonia), Chicken Pox and Measles Family History FAMILY HISTORY: Positive Family Cardiac Disorders, Family Gastrointestinal Problems and Family Surgery Surgical History SURGICAL: Positive Abdominal Surgery and Section (x1) ED Exam Narrative Physical exam: GEN. APPEARANCE: The patient is alert awake oriented X-3 under no distress, lying down comfortably, does not look ill/toxic, c/o right anterior maxillary pain. Patient has good eye contact. Patient is cooperative. VITALS: All vitals were reviewed and the pulse ox is 99%, which is normal according to my interpretation HEENT: Normocephalic, atraumatic and nontender. Pupils are equal and reactive. Oral mucosa is moist. NECK: Supple, nontender, no meningismus, no JVD. There is no thyromegaly and no lymphadenopathy. CHEST: Nontender on palpation no deformity and no crepitus. CARDIOVASCULAR: Heart regular rhythm, no murmur or gallop rub or extra beats. LUNGS: Clear to auscultation bilaterally with symmetrical chest rise. No laboring tachypnea or wheezing. No intercostal subcostal retraction. No rales and no rhonchi. ABDOMEN: Soft, flat, nontender to palpation, no guarding or rebound tenderness. There are no abnormal masses palpated. No pulsatile masses or bruits. Active and normal bowel sounds. EXTREMITIES: Normal inspection and palpation. No edema. No cyanosis. Patient is able to move all 4 extremities well SKIN: Warm and dry, no rashes noted. MUSCULOSKELETAL: No lumbar or midline bony tenderness. There is no CVA tenderness. No paraspinal muscle spasm or tenderness. NEURO: Cranial nerves II through XII grossly intact. There are no focal neurologic deficits noted. GCS is 15 PSYCHIATRIC: Patient is in normal mood and affect, cooperative. LYMPHATICS: No major lymphadenopathy noted. Course Quality Measures none Orders Category Date Time Status EKG (ED ONLY) *Do not use* NOW Care 01/26/25 18:[address] head/brain wo con Stat Exams 01/26/25 19:21 Completed EKG (ED Only) Stat Exams 01/26/25 18:17 Draft CBC Stat Lab 01/26/25 19:38 Completed CMP [Comprehensive Metabolic Panel] Stat Lab 01/26/25 19:38 Completed HCG,Qualitative Serum Stat Lab 01/26/25 19:38 Completed Troponin I Stat Lab 01/26/25 19:38 Completed UA, C/S IF [Urinalysis, C/S if Indicated] Stat Lab 01/26/25 19:55 Completed Ampicillin/Sulbac Inj [Unasyn Inj] 3 gm Med 01/26/25 23:45 Discontinued Sodium Chloride 0.9% (Pop) [NS 0.9% mini bag] 100 ml IV X1 Dexamethasone Inj [Decadron Inj] 10 mg Med 01/26/25 23:45 Discontinued Sodium Chloride 0.9% [Ns] 100 ml IV X1 Morphine* Inj Med 01/26/25 23:46 Discontinued 4 mg IVP X1 ONE Prochlorperazine Inj [Compazine Inj] Med 01/26/25 23:45 Discontinued 5 mg IV X1 ONE Sodium Chloride 0.9% 1000 ml [Ns] 1,000 ml Med 01/26/25 23:46 Discontinued IV 999 mls/hr Vital Signs Vital signs: Vital Signs Temperature 98.6 F 01/26/25 18:56 Pulse Rate 66 01/26/25 18:56 Respiratory Rate 16 01/26/25 18:56 Blood Pressure 165/95 H 01/26/25 18:56 Pulse Oximetry (%) 100 01/26/25 18:56 Oxygen Delivery Method Room Air 01/26/25 18:56 Headache MDM Narrative MDM Narrative:: Scribe Attestation: ICris am scribing for and in the presence of Dr. Dumont. Provider Notation: Although this document has been carefully reviewed, there may still be some phonetic and other typographical errors. These errors are purely grammatical due to imperfections in the software program and should not be construed in any way to compromise the substance of the patient's medical care during this visit. Patient with recent right upper RCT presenting with right facial pain of several days duration and notes frontal occipital ALMODOVAR of 3 days duration, no change with exertion. ALMODOVAR described as pressure-like no pulsatile component. Please see PE findings. Laboratory markers demonstrate normal CBC. Serum chemistries essentially negative. UA with evidence of hematuria. Patient placed on secured entrance monitor, IV established, patient hydrated to correct volume deficit. CT of head demonstrates acute maxillary sinusitis patient received emperic ABX, steroids, and low-dose narcotic analgesics. Patient remained stable through ED course. Considered stable for discharge. Patient data External records reviewed:: [facility] previous records (Reviewed prior ED records from 10/10/24. Patient was seen for Rash.) Clinical information provided by:: patient Social determinants that could affect healthcare access:: none Patient has the following chronic illnesses:: Hypercholesterolemia, Asthma, Hemorrhoids, Obesity, Diabetes Mellitus Type 2 How is presenting disease/condition affected by chronic disease/condition?: exacerbated by Evaluation data The following diagnostics were reviewed and interpreted by me:: lab results, radiology exam(s) and EKG tracing(s) (EKG demonstrates sinus rhythm with rate of 63, non-specific ST segment changes, no ventricular ectopy, axis is leftward, and intervals are normal, per my interpretation.) Lab and/or radiology exams considered but not ordered:: None Interpretation Summary: RADIOLOGY Head/Brain CT: Findings: No significant ventricular enlargement. Intra-axial or extra-axial hemorrhage density is not seen. No mass effect or midline shift Basal cisterns are not remarkable. Fourth ventricle is midline. Cranial vault intact. Impression: Negative for acute hemorrhage, mass effect or midline shift Acute right maxillary sinusitis Medications / Prescriptions Medications or Prescriptions considered but not ordered:: None Medication administrations:: Medication Administration History Discontinued Medications Ampicillin Sodium/Sulbactam (Sodium 3 gm/ Sodium Chloride) 100 mls @ 200 mls/hr IV X1 ONE Stop: 01/26/25 23:46 Last Infusion: 01/27/25 00:38 Dose: Infused Documented By: Admin: 01/27/25 00:08 Dose: 200 mls/hr Documented By: DT Dexamethasone Sodium Phosphate (10 mg/ Sodium Chloride) 101 mls @ 101 mls/hr IV X1 ONE Stop: 01/26/25 23:46 Last Admin: 01/27/25 00:35 Dose: 101 mls/hr Documented By: DT Sodium Chloride (Ns) 1,000 mls @ 999 mls/hr IV .Q1H1M ONE Stop: 01/27/25 00:46 Last Admin: 01/27/25 00:07 Dose: 999 mls/hr Documented By: DT Morphine Sulfate (Morphine Sulf Inj 4 Mg/Ml Vial) 4 mg IVP X1 ONE Stop: 01/26/25 23:47 Last Admin: 01/27/25 00:10 Dose: 4 mg Documented By: DT Prochlorperazine Edisylate (Prochlorperazine Inj 5 Mg/Ml Vial 2 Ml) 5 mg IV X1 ONE; Protocol Stop: 01/26/25 23:46 Last Admin: 01/27/25 00:08 Dose: 5 mg Documented By: DT See above if any Consultations Consultation(s) initiated? (list below): No Diagnosis Differential diagnosis headache: migraine, tension headache, headache, meningitis and sinusitis Most likely diagnosis given after review of the tests above:: Maxillary sinusitis, Tension headache Admission Indicated Admission indicated?: not indicated Explain why admission is indicated or not indicated:: Patient does not meet admission criteria Admission Request Was there a request for admission?: No Disposition Plan Disposition Plan: Discharge Discharge Attestation Discharge Attestation: The patient and all family members were given an opportunity to ask questions and understood the discharge instructions. Discharge instructions specifically effects, indications for sooner follow up or return to the emergency department, and the expected course of current diagnosis. Patient condition: Stable Discharge Plan Plan Patient Disposition: HOME (Self Care) Discharge Disposition comment: Stable Prescriptions/Referrals Prescriptions/Med Rec: No Action albuterol sulfate 90 mcg/actuation HFA aerosol inhaler 1 puff INHALATION Q4HR PRN (Reason: Shortness Of Breath Or Wheezing) norethindrone (contraceptive) 0.35 mg Tablet 0.35 mg PO QDAY amoxicillin 500 mg Capsule 500 mg PO Q8H docusate sodium [Colace] 100 mg capsule 100 mg PO QDAY PRN (Reason: constipation) Qty: 30 0RF ibuprofen 800 mg tablet 800 mg PO Q8H PRN (Reason: pain) Qty: 30 0RF oxycodone-acetaminophen [Percocet] 5-325 mg tablet 1 tab PO Q6H MDD 6 tabs PRN (Reason: pain) Qty: 30 0RF ondansetron 4 mg tablet,disintegrating 4 mg PO Q6H PRN (Reason: nausea and vomiting) Qty: 20 0RF Referrals: No Primary/Family,Physician [Primary Care Provider] - In 1 week Problem List Clinical Impression: Maxillary sinusitis, Tension headache Patient/Caregiver Discharge Instructions Print Language: Occitan Stand Alone Forms: Jeane Award Info., Patient Portal Info Letter
[2025-01-27] MEDS: SODIUM CHLORIDE 0.9% 1000 ML 1,000 ML 999 ML IV (00:07)
[2025-01-27] MEDS: AMPICILLIN/SULBAC INJ 3 GM in SODIUM CHLORIDE 0.9% (POP) 100 ML IV (00:08)
[2025-01-27] MEDS: PROCHLORPERAZINE INJ 5 MG/ML VIAL 2 ML IV (00:08)
[2025-01-27] MEDS: MORPHINE SULF INJ 4 MG/ML VIAL IVP (00:10)
[2025-01-27] MEDS: DEXAMETHASONE INJ 10 MG in SODIUM CHLORIDE 0.9% 100 ML 101 MG IV (00:35)
[2025-01-27 01:48] VITALS: BP 122/88; PULSE 62; RESP 17; O2SAT 100
== END 2025-01-27 01:49 | disposition home or self-care (01) ==
PROVIDERS: Physician Assistant; Emergency Provider Emergency Medicine
DX: G44.209 Tension-type headache, unspecified, not intractable (principal); J01.00 Acute maxillary sinusitis, unspecified; E11.9 Type 2 diabetes mellitus without complications; E66.9 Obesity, unspecified; J45.909 Unspecified asthma, uncomplicated; E78.00 Pure hypercholesterolemia, unspecified
CPT/HCPCS: 36415; 70450; 80053; 81001; 84484; 84703; 85025; 93005; 96365; 96366; 96375; 99284; J0295; J0780; J1100; J2270; J7030; J7050

== ENCOUNTER 2025-03-04 10:21 | Emergency (ER) | payer MEDICAID, SELFPAY ==
[2025-03-04 10:23] VITALS: BMI 34.5
[2025-03-04 10:36] VITALS: BP 136/86; PULSE 74; RESP 16; TEMP 36.9; O2SAT 98
--- NOTE | 2025-03-04 10:43 | EKG_ITS ---
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
--- NOTE | 2025-03-04 10:43 | XR_ITS ---
EXAMINATION: PA lateral chest 2 views TECHNIQUE: Upright PA lateral chest 2 views Date and time: March 04, 2025, 1050 hours INDICATIONS: Chest pain today. FINDINGS: Normal heart size Lungs are clear. Osseous rectors are intact IMPRESSION: No active disease
[2025-03-04 11:54] LABS: Basophils # (Auto) 0.0 Thou/mm3 (0.0-0.2); Basophils % (Auto) 1 % (0-2.5); Eosinophils # (Auto) 0.1 Thou/mm3 (0.0-0.5); Eosinophils % (Auto) 2 % (0-10); Hematocrit 35.9 % (36.0-46.0); Hemoglobin 12.1 g/dL (12.0-16.0); Immature Granulocytes Auto 0.01 Thou/mm3 (0.00-0.00); Lymphocytes # (Auto) 2.2 Thou/mm3 (1.0-4.8); Lymphocytes % (Auto) 35 % (10-50); Mean Corpuscular HGB Conc 33.7 g/dl (31.0-37.0); Mean Corpuscular Hemoglobin 28.5 pg (25.0-35.0); Mean Corpuscular Volume 85 fL (80-100); Monocytes # (Auto) 0.4 Thou/mm3 (0.0-0.8); Monocytes % (Auto) 7 % (0-12); Neutrophils # (Auto) 3.5 Thou/mm3 (1.8-7.7); Neutrophils % (Auto) 56 % (37-80); Nucleated Red Blood Cell # 0.00 Thou/mm3 (0.00-0.00); Nucleated Red Blood Cell % 0 /100 WBC (0); Platelet Count 190 Thou/mm3 (140-440); RDW Standard Deviation 42.3 fL (36.4-46.3); Red Blood Count 4.24 Miln/mm3 (4.00-5.20); White Blood Count 6.2 Thou/mm3 (3.6-11.0)
[2025-03-04 12:15] LABS: Alanine Aminotransferase 14 U/L (10-49); Albumin, Serum 4.6 gm/dL (3.5-5.0); Albumin/Globulin Ratio 1.8 (1.2-2.2); Alkaline Phosphatase 48 U/L (46-116); Anion Gap 9 (7-16); Aspartate Amino Transferase < 8 U/L (0-34); BUN/Creatinine Ratio 15 Ratio (12-20); Bilirubin,Total 0.4 mg/dL (0.3-1.2); Blood Urea Nitrogen 12 mg/dL (9-23); Calcium 9.2 mg/dL (8.3-10.6); Calcium (Corrected) 9.2 mg/dL (8.5-10.1); Carbon Dioxide 26.9 mMol/L (20.0-31.0); Chloride 106 mMol/L (98-107); Creatinine (Component) 0.8 mg/dL (0.6-1.3); Estimated Creatinine Clearance 71.1 mL/min (>60); Globulin 2.5 gm/dL (2.3-3.5); Glucose 94 mg/dL (74-106); Osmolality,Calculated 282 (275-295); Potassium 3.9 mMol/L (3.4-5.1); Sodium 142 mMol/L (136-145); Total Protein 7.1 gm/dL (5.7-8.2); Troponin I < 0.002 ng/mL (0.0-0.045); eGFR > 60 See Note
[2025-03-04 12:17] LABS: HCG,Qualitative Serum Negative
--- NOTE | 2025-03-04 17:06 | EDNOTE_ITS ---
<Statement entered by Salena Payne MD - 03/14/25 06:28> As co-signing physician, I was present and available for consult prn. I concur with the plan and care as documented by the midlevel provider. ED Chest Pain RME/HPI General Chief Complaint: Arrhythmia/Palpitations Stated Complaint: I FEEL MY BP GOING UP SINCE SUNDAY Time Seen by Provider: 03/04/25 12:09 Arrival date/time: 03/04/25 10:21 40-year-old female presents to the emergency department today states that she feels like my BP is going up patient reports symptom onset Sunday. Patient reports no shortness of breath no fever or nausea. Patient reports no abdominal pain Limitations: no limitations Related Data Home Medications ?Medication ?Instructions ?Recorded ?Confirmed albuterol sulfate 90 mcg/actuation 1 puff inhalation Q 4HR PRN 02/18/24 05/05/24 aerosol inhaler Shortness Of Breath Or Wheez ing norethindrone (contraceptive) 0.35 0.35 mg PO QDAY 05/05/24 mg tablet amoxicillin 500 mg capsule 500 mg PO Q8H 03/14/2406/24 Previous Rx's ?Medication ?Instructions ?Recorded docusate sodium 100 mg capsule 100 mg PO QDAY PRN cons tipation 03/19/24 (Colace) #30 caps ibuprofen 800 mg tablet 800 mg PO Q8H PRN pain #30 t abs 03/19/24 ondansetron 4 mg disintegrating 4 mg PO Q6H PRN nausea and 03/19/24 tablet vomiting #20 tabs oxycodone-acetaminophen 5 mg-325 1 tab PO Q6H PRN pain #30 tabs 03/19/24 mg tablet (Percocet) acetaminophen 300 mg-codeine 15 mg 1 tab PO Q8H PRN pa in #14 tabs 01/27/25 tablet Allergies Allergy/AdvReac Type Severity Reaction Status Date / Time No Known Allergies Allergy Verified 01/26/25 18:15 Review of Systems Review of Systems Systems Reviewed: All systems reviewed, normal except as documented Constitutional Constitutional: Reports system reviewed and no additional complaints, except as documented, Denies fever(s) and Denies headache(s) Eyes Eyes: Reports system reviewed and no additional complaints, except as documented and Denies blurry vision ENT Ears, Nose, Mouth, and Throat: Reports system reviewed and no additional comp laints, except as documented, Denies headache(s), Denies nasal congestion and Denies nasal discharge Cardiovascular Cardiovascular: Reports system reviewed and no additional complaints, except as documented, Denies chest pain and Denies dyspnea Respiratory Respiratory: Reports system reviewed and no additional complaints, except as documented, Denies chest congestion, Denies cough and Denies dyspnea Gastrointestinal Gastrointestinal: Reports system reviewed and no additional complaints, except as documented and Denies abdominal pain Integumentary/Breasts Skin/Breast: Reports system reviewed and no additional complaints, except as documented and Denies rash Neurologic Neurologic: Reports system reviewed and no additional complaints, except as doc umented, Reports as per HPI and Denies headache(s) Past Medical History Past Medical History NEUROLOGIC: Negative Neurological Disorders or Seizures CARDIAC: Positive Hypercholesterolemia; Negative Cardiac Disorders or Congestive Heart Failure RESPIRATORY: Positive Asthma and Pneumonia; Negative Chronic Obstructive Pulmonary Disease (COPD) GASTROINTESTINAL: Positive Gastrointestinal Disorders, Hemorrhoids and Obesity; Negative Hepatitis GENITOURINARY: Negative Genitourinary Disorders or Renal Disease REPRODUCTIVE: Positive Previous Pregnancies; Negative Breast Cancer, Endometriosis, Genital Herpes, Gonorrhea, Pelvic Inflammatory Disease, Syphilis or Uterine Prolapse MUSCULOSKELETAL: Negative Musculoskeletal Disorders ENDOCRINE: Positive Diabetes Mellitus Type 2; Negative Endocrine Disorders or Diabetes Mellitus Type 1 HEMATOLOGIC: Negative Blood Disorders PSYCHO/SOCIAL: Negative Anxiety OTHER HISTORY: Positive Hospitalization (surgery, pneumonia), Chicken Pox and Measles; Negative Autoimmune Disease, Shingles, Blood Transfusions, Anesthesia Reactions, Organ Transplant, Chemotherapy, Radiation Therapy, Hyperbaric Therapy, Clos tridium Difficile, Cancer or Breast Cancer Family History FAMILY HISTORY: Positive Family Cardiac Disorders, Family Gastrointestinal Problems and Family Surgery; Negative Family Psychiatric Problems, Family Respiratory Disorders, Family Cancer or Family Anesthesia Reaction Surgical History SURGICAL: Positive Abdominal Surgery and Section (x1); Negative Cardiac Surgery, Endocrine Surgery, Ear Surgery, Nephrectomy, Joint Replacement, Neurologic Surgery, Mastectomy or Organ Transplant Social History SMOKING STATUS: Never smoker SUBSTANCE USE: does not use ED Exam General Limitations: Present no limitations General appearance: Present alert and in no apparent distress Head Head exam: Present atraumatic Eye Eye exam: Present normal appearance, PERRL and EOMI ENT ENT exam: Present normal exam, normal oropharynx and mucous membranes moist Neck Neck exam: Present normal inspection, full ROM and trachea midline Chest Chest inspection: Present normal inspection and symmetric chest wall rise Respiratory Respiratory exam: Present normal lung sounds bilaterally Cardiovascular Cardiovascular exam: Present regular rate, normal rhythm and normal heart sounds Abdominal Exam Abdominal exam: Present soft and normal bowel sounds Extremities Exam Extremities exam: Present normal inspection and full ROM Back Exam Back exam: Present normal inspection and full ROM Neurological Exam Neurological exam: Present alert, oriented X3 and CN II-XII intact Psychiatric Psychiatric exam: Present normal affect and normal mood Skin Skin exam: Present warm, dry, intact and normal color Course Quality Measures none Orders Category Date Time Status EKG (ED ONLY) *Do not use* NOW Care 03/04/25 10:43 Completed EKG (ED Only) Stat Exams 03/04/25 10:43 Draft XR chest 2V Stat Exams 03/04/25 10:43 Completed CBC Stat Lab 03/04/25 11:38 Completed Comprehensive Metabolic Panel Stat Lab 03/04/25 11:38 Completed HCG,Qualitative Serum Stat Lab 03/04/25 11:38 Completed Troponin I Stat Lab 03/04/25 11:38 Completed Vital Signs Vital signs: Vital Signs Temperature 98.4 F 03/04/25 10:36 Pulse Rate 74 03/04/25 10:36 Respiratory Rate 16 03/04/25 10:36 Blood Pressure 136/86 H 03/04/25 10:36 Pulse Oximetry (%) 98 03/04/25 10:36 Oxygen Delivery Method Room Air 03/04/25 10:36 O2 saturation 98% room air within normal limits PROCEDURES: EKG Interpretation #1: Date of EK03/04/25 Time of EK:44 Rate: 72 Interpretation: Interpreted by me EKG Impression: Normal sinus rhythm, No acute ST-T changes, No ectopy, No ischemic changes, Normal QRS, Normal intervals and Normal axis Chest Pain MDM Narrative MDM Narrative:: 40-year-old female presents to the emergency department today states that she feels like my BP is going up patient reports symptom onset Sunday. Patient reports no shortness of breath no fever or nausea. Patient reports no abdominal pain Clinically patient well-appearing does not appear ill or toxic no acute stress Lab work and imaging obtained no acute emergent findings noted EKG obtained no acute emergent findings noted Patient discharged home in no distress to follow-up with primary care doctor in the next 24 to 48 hours and for any worsening symptoms to return to the ER immediately Patient data External records reviewed:: [facility] previous records Clinical information provided by:: patient Social determinants that could affect healthcare access:: none Patient has the following chronic illnesses:: She history How is presenting disease/condition affected by chronic disease/condition?: caused by Evaluation data The following diagnostics were reviewed and interpreted by me:: lab results, radiology exam(s) and EKG tracing(s) Lab and/or radiology exams considered but not ordered:: Labs, radiology, EKG obtained Interpretation Summary: Reviewed by me Medications / Prescriptions Medications or Prescriptions considered but not ordered:: Given Medication administrations:: Given Consultations Consultation(s) initiated? (list below): No Diagnosis Chest Pain Differential Diagnosis: fracture of rib, pneumothorax, costochondritis and chest pain Most likely diagnosis given after review of the tests above:: Chest pain Admission Indicated Admission indicated?: not indicated Admission Request Was there a request for admission?: No Disposition Plan Disposition Plan: Discharge Discharge Attestation Discharge Attestation: The patient and all family members were given an opportunity to ask questions and understood the discharge instructions. Discharge instructions specifically effects, indications for sooner follow up or return to the emergency department, and the expected course of current diagnosis. Patient condition: Stable Discharge Plan Plan Patient Disposition: HOME (Self Care) Discharge Disposition comment: Stable Prescriptions/Referrals Prescriptions/Med Rec: No Action albuterol sulfate 90 mcg/actuation HFA aerosol inhaler 1 puff INHALATION Q4HR PRN (Reason: Shortness Of Breath Or Wheezing) norethindrone (contraceptive) 0.35 mg Tablet 0.35 mg PO QDAY amoxicillin 500 mg Capsule 500 mg PO Q8H docusate sodium [Colace] 100 mg capsule 100 mg PO QDAY PRN (Reason: constipation) Qty: 30 0RF ibuprofen 800 mg tablet 800 mg PO Q8H PRN (Reason: pain) Qty: 30 0RF oxycodone-acetaminophen [Percocet] 5-325 mg tablet 1 tab PO Q6H MDD 6 tabs PRN (Reason: pain) Qty: 30 0RF ondansetron 4 mg tablet,disintegrating 4 mg PO Q6H PRN (Reason: nausea and vomiting) Qty: 20 0RF acetaminophen-codeine 300-15 mg tablet 1 tab PO Q8H MDD 3 tab PRN (Reason: pain) Qty: 14 0RF Referrals: Tootie,Sofy, [employer] DES[employer] ENGINEER-C [Primary Care Provider] - In 1 week Problem List Clinical Impression: Chest pain Patient/Caregiver Discharge Instructions Additional Instructions: Please follow up with your primary care doctor in the next 24-48hrs for any worsening symptoms return here immediately Print Language: Croatian Stand Alone Forms: Jeane Award Info., Work/School Release, Patient Portal Info Letter AVE/MAGY Supervising Physician AVE/MAGY Supervising Physician: Dr. Payne
== END 2025-03-04 13:44 | disposition home or self-care (01) ==
PROVIDERS: Nurse Practitioner Primary Care; Emergency Provider Emergency Medicine; PCP Nurse Practitioner Family
DX: R07.9 Chest pain, unspecified (principal); R94.31 Abnormal electrocardiogram [ECG] [EKG]; E78.00 Pure hypercholesterolemia, unspecified
CPT/HCPCS: 36415; 71046; 80053; 84484; 84703; 85025; 93005; 99283